=== PATIENT | male | born 1960 | race Caucasian/White ===

== ENCOUNTER 2016-10-03 07:04 | Emergency (ER) | payer BC ==
--- NOTE | 2016-10-03 08:03 | RAD ---
HISTORY: Fever, chills, cough COMPARISONS: None VIEWS: 2: Frontal dual-energy and lateral views of the chest. FINDINGS: CARDIOMEDIASTINAL SILHOUETTE: The cardiomediastinal silhouette is normal. JESU: The jesu are normal. PLEURA: The costophrenic angles are sharp. No pleural abnormalities are noted. LUNG PARENCHYMA: There is confluent alveolar opacification of the left lower lobe ABDOMEN: The upper abdomen is clear. There is no subphrenic gas. BONES AND SOFT TISSUES: No bone or soft tissue abnormalities are noted. OTHER: None. IMPRESSION: LEFT LOWER LOBE CONSOLIDATION. RECOMMEND FOLLOW-UP UNTIL RESOLUTION TO EXCLUDE UNDERLYING PULMONARY PARENCHYMAL PATHOLOGY
[2016-10-03] MEDS ORDERED: cefTRIAXone VIAL(*) 1,000 MG in NS 0.9% 50 ML* 50 ML IVPB ONE (08:12)
[2016-10-03] MEDS ORDERED: NS 0.9% 1000 ML* 1,000 ML BOLUS ONE (08:13)
[2016-10-03] MEDS ORDERED: Ipratropium 0.5MG/2.5ML NEB* 0.5 MG/2.5 ML NEB.SOLN INH ONE (08:13)
[2016-10-03] MEDS ORDERED: Albuterol 2.5 MG/3 ML NEB.SOL* (0.083%) INH ONE (08:13)
[2016-10-03] MEDS ORDERED: cefTRIAXone VIAL(*) 1,000 MG VIAL ONE (08:16)
--- NOTE | 2016-10-03 08:38 | UC ---
Respiratory Complaint HPI - HPI Summary HPI Summary: 56 yo male with about a 6 day hx of f/c, n/v, wheezing and felling week hx pneumonia bilateral ear decreased hearing mild nasal congestion - History of Current Complaint Chief Complaint: UCRespiratory Stated Complaint: COUGH/FEVER/CONGESTION Time Seen by Provider: 10/03/16 07:23 Hx Obtained From: Patient Onset/Duration: Gradual Onset, Lasting Days Timing: Constant Severity Initially: Mild Severity Currently: Moderate Pain Intensity: 3 Pain Scale Used: 0-10 Numeric Character: Cough: Nonproductive Aggravating Factors: Nothing Alleviating Factors: Nothing Associated Signs And Symptoms: Positive: Fever, Chills, Wheezing Related History: Similar Episode/Dx as: - pneumonia - Allergies/Home Medications Allergies/Adverse Reactions: Allergies Allergy/AdvReac Type Severity Reaction Status Date / Time No Known Allergies Allergy Verified 10/03/16 07:13 Home Medications: Home Medications Acetaminophen [Acetaminophen Extra Stren] 1,000 mg PO Q6H PRN 10/03/16 [History Confirmed 10/03/16] Aspirin EC Low Dose* [Ecotrin EC Low Dose 81 MG*] 81 mg PO DAILY 10/03/16 [ History Confirmed 10/03/16] Atorvastatin* [Lipitor*] 80 mg PO DAILY 10/03/16 [History Confirmed 10/03/16] Dextromethorphan Polistirex [Delsym Cough Childrens] 60 mg PO Q12H PRN 10/03/16 [History Confirmed 10/03/16] Guaifenesin/Pseudo 600/60(NF) [Mucinex D 600/60 (NF)] 2 tab PO Q12H PRN [History Confirmed 10/03/16] [place]-3 Fatty Acids [[place] 3] 2,000 mg PO BID 10/03/16 [History Confirmed ] PMH/Surg Hx/FS Hx/Imm Hx Previously Healthy: Yes Endocrine History Of: Reports: Dyslipidemia Cardiovascular History Of: Reports: Cardiac Disorders - Dyslipidemia, MD 2014 Respiratory History Of: Reports: Pneumonia - Surgical History Surgical History: Yes Surgery Procedure, Year, and Place: Bilateral Knee Arthroscopies - Family History Known Family History: Positive: Cardiac Disease, Hypertension - Social History Alcohol Use: None Substance Use Type: None Smoking Status (MU): Heavy Every Day Tobacco Smoker Type: Smokeless Tobacco Amount Used/How Often: 3/4 Can Per Day Length of Time of Smoking/Using Tobacco: 20+ Years - Immunization History Most Recent Influenza Vaccination: Not the 2015/2016 Season Review of Systems Constitutional: Fever, Chills, Fatigue Skin: Negative Eyes: Negative ENT: Negative Respiratory: Cough Cardiovascular: Negative Gastrointestinal: Vomiting Genitourinary: Negative Motor: Negative Neurovascular: Negative Musculoskeletal: Negative Neurological: Negative Psychological: Negative All Other Systems Reviewed And Are Negative: Yes Physical Exam Triage Information Reviewed: Yes Appearance: No Pain Distress, Well-Nourished, Ill-Appearing - but does not appear septic Vital Signs: Initial Vital Signs Temp 99.2 F 10/03/16 07:09 Pulse 110 10/03/16 07:09 Resp 18 10/03/16 07:09 BP 109/72 10/03/16 07:09 Pulse Ox 94 10/03/16 07:09 Vital Signs Reviewed: Yes Eyes: Positive: Conjunctiva Clear ENT: Positive: TM bulging - left red and bulging, right bulging. Negative: Hearing grossly normal - decrease hearing Neck: Positive: Supple, Nontender, No Lymphadenopathy Respiratory: Positive: Crackles - left base, Wheezing Cardiovascular: Positive: RRR, No Murmur Musculoskeletal: Positive: ROM Intact, No Edema Neurological: Positive: Alert Psychological Exam: Normal Skin Exam: Normal UC Diagnostic Evaluation - Laboratory O2 Sat by Pulse Oximetry: 94 - low normal - Radiology Xray Interpretation: Positive (See Comments) Radiology Interpretation Completed By: Radiologist Re-Evaluation - Re-Evaluation First Eval Re-Evaluation Time: 09:06 Change: Improved - feels better, no wheezing, I now here bibasilar rales Second Eval Re-Evaluation Time: 09:34 Change: Improved - feels much better, repeat Pox 96% Respiratory Course/Dx - Differential Dx/Diagnosis Provider Diagnoses: pneumonia. bronchospasm Discharge - Discharge Plan Condition: Stable Disposition: HOME Prescriptions: Amoxicillin/Clavulanate TAB* [Augmentin TAB 875*] 875 mg PO BID #20 tab Ondansetron TAB* [Zofran Tab*] 4 mg PO Q6H PRN #10 tab PRN Reason: Nausea Prednisone [Deltasone] 40 mg PO DAILY #8 tab Patient Education Materials: Bronchospasm (ED), Pneumonia (ED) Referrals: Bartolo Walker MD [Primary Care Provider] - 2 Weeks Additional Instructions: rest fluids tylenol use albuterol inhaler as directed take first dose of augmentin this evening you had todays dose of prednisone RECHECK FOR NEW OR WORSENING SYMPTOMS RECHECK IN 3-4 DAYS IF NOT IMPROVED (HERE OR WITH YOUR MD) THE RADIOLOGIST HAS SUGGESTED YOU GET RE XRAYED IN A FEW WEEKS TO MAKE SURE YOUR PNEUMONIA HAS RESOLVED
[2016-10-03] MEDS ORDERED: predniSONE TAB* 20 MG PO ONE (09:03)
[2016-10-03] MEDS ORDERED: Albuterol HFA INHALER* 8 gm MDI INH ONE (09:04)
[2016-10-03 09:30] VITALS: BP 99/64
== END 2016-10-03 09:45 | disposition home or self-care (01) ==
LOC: UCCORT 07:04
DX: J18.9 Pneumonia, unspecified organism (principal); J98.01 Acute bronchospasm; E78.5 Hyperlipidemia, unspecified; I25.2 Old myocardial infarction; F17.210 Nicotine dependence, cigarettes, uncomplicated
CPT/HCPCS: 71020; 96361; 96365; 99203; A9270-GY; G0463; J0696; J7512; J7644

== ENCOUNTER 2018-07-27 10:57 | Emergency (ER) | payer BC ==
[2018-07-27 12:10] VITALS: BP 119/73
--- NOTE | 2018-07-27 13:44 | UC ---
Throat Pain/Nasal Timmy HPI - HPI Summary HPI Summary: Patient presents to urgent care reporting increased sinus pressure over the last 2 weeks. Patient's been using Mucinex with slight improvement. Patient states the last 2 days has had right ear pain. Patient denies fevers or chills. Patient states improvement with shower. Patient states she's got teeth. Patient is not your primary care. Patient states when he blows his nose he was getting some thick green discharge and now he gets very little. Patient with mild postnasal drip. No sore throat. No rash. Patient with a history of sinus infection states this feels similar. Pt states called his PCP today - they were patient states he called his doctors office - they were unable to see him so sent him here for eval. Patient's medications reviewed this visit. - History of Current Complaint Chief Complaint: UCGeneralIllness Stated Complaint: SINUS CONCERN Time Seen by Provider: 07/27/18 13:43 Hx Obtained From: Patient Onset/Duration: Gradual Onset Severity: Moderate Pain Intensity: 5 Pain Scale Used: 0-10 Numeric - Allergies/Home Medications Allergies/Adverse Reactions: Allergies Allergy/AdvReac Type Severity Reaction Status Date / Time No Known Allergies Allergy Verified 07/27/18 12:05 Home Medications: Home Medications guaiFENesin [Mucinex] 600 mg PO ONCE 07/27/18 [History Confirmed 07/27/18] PMH/Surg Hx/FS Hx/Imm Hx Previously Healthy: Yes - Surgical History Surgical History: Yes Surgery Procedure, Year, and Place: Bilateral Knee Arthroscopies - Family History Known Family History: Positive: Cardiac Disease, Hypertension, Non-Contributory - Social History Occupation: Employed Full-time Lives: With Family Alcohol Use: None Substance Use Type: None Smoking Status (MU): Heavy Every Day Tobacco Smoker Type: Smokeless Tobacco Amount Used/How Often: 1 Can every 3-4 days Length of Time of Smoking/Using Tobacco: 20+ Years - Immunization History Most Recent Influenza Vaccination: Not the 2016/2016 Season Review of Systems All Other Systems Reviewed And Are Negative: Yes Constitutional: Positive: Fatigue ENT: Positive: Ear Ache - right, Nasal Discharge, Sinus Congestion, Sinus Pain/ Tenderness Musculoskeletal: Negative: Arthralgia Physical Exam - Summary Physical Exam Summary: Vital Signs Reviewed: Yes A+Ox3, no distress, congested Eyes: Conjunctiva Clear, LA. EOM intact and full ENT: Hearing grossly normal right ear + fluid, erythema, buldge, left wnl, turbinates inflammed and boggy, + thick PND, mmoist, uvula midline, no exudate, no erythema Neck: Positive: Supple Respiratory: Positive: No respiratory distress, No accessory muscle use + CTA throughout no w/r Cardiovascular: RRR nl s1, s2 no m/r CBT <2 sec abd soft + BS nt/nd no guarding, no distension Musculoskeletal Exam: LANTIGUA x 4 without difficulty Strength Intact, ROM Intact Neurological: Positive: Alert, + sensation throughout Psychological: Positive: Normal Response To Family Skin: Positive: no rash, no ecchymosis Triage Information Reviewed: Yes Vital Signs: Initial Vital Signs Temp 98.1 F 07/27/18 12:06 Pulse 78 07/27/18 12:06 Resp 15 07/27/18 12:06 BP 119/73 07/27/18 12:06 Pulse Ox 98 07/27/18 12:06 Throat Pain/Nasal Course/Dx - Course Course Of Treatment: Patient presents with 2 weeks of progressive sinus pressure and 2 days of right ear pain. Patient's been taking Mucinex initially helped but not currently. Patient without any other complaints. Patient without any headaches or vision changes. Patient states pressure in his face when he chews or leans forward. Patient denies fevers, chills, headache, vision changes. Patient without any other complaints. On exam vital signs are stable. Consistent with viral sinusitis. Will start Flonase as well as Augmentin. Discussed with patient diarrhea. Hydrate. We'll humidify air. Secretion precaution return precaution. Patient comfortable in agreement with plan. Patient given some masks is he's visiting family this evening. - Differential Dx/Diagnosis Provider Diagnosis: Rhinosinusitis Discharge - Sign-Out/Discharge Documenting (check all that apply): Patient Departure All imaging exams completed and their final reports reviewed: No Studies - Discharge Plan Condition: Stable Disposition: HOME Prescriptions: Amoxicillin/Clavulanate TAB* [Augmentin TAB 875*] 875 mg PO BID #20 tab Fluticasone NASAL SPRAY 50MCG* [Flonase NASAL SPRAY 50MCG*] 2 spray BOTH NARES DAILY #1 btl Patient Education Materials: Rhinosinusitis (ED) Referrals: Bartolo Walker MD [Primary Care Provider] - Additional Instructions: - Stay well hydrated. Drink plenty of non-alcoholic, non-caffinated beverages. - Alternate ibuprofen (Advil, Motrin) 600mg and Tylenol every 3 hours for pain or fever. Take with food. Do NOT take for more than 4-5 days. - These infections are spread by secretions - do NOT share eating or drinking utensils - clean items you share with other people such as cell phones, computer mouse, TV remote, computer tablets,etc. Once you have been antibiotics for 2 days, change your toothbrush and your pillowcase. - Get plenty of restful sleep - Humidify the air in the room where you sleep - boil water, run a hot steam shower, vaporizer, cups of water by heat register - Okay to take over the counter decongestant and cough medication - Use nasal spray as prescribed - Contact your doctor or return with questions or concerns - Billing Disposition and Condition Condition: STABLE Disposition: Home
== END 2018-07-27 13:59 | disposition home or self-care (01) ==
LOC: UCCORT 10:57
DX: J32.9 Chronic sinusitis, unspecified (principal); F17.210 Nicotine dependence, cigarettes, uncomplicated
CPT/HCPCS: 99212; G0463